=== PATIENT | female | born 1965 | race African-American/Black ===

== ENCOUNTER 2021-10-09 12:21 | Inpatient (IN) | payer OTHER ==
[2021-10-09 12:35] VITALS: BMI 30.4
[2021-10-09 13:16] LABS: BASO % 0.5 % (0-2.0); EOS % 2.1 % (0-4.5); HEMATOCRIT 36.8 % (32.4-45.2); HEMOGLOBIN 12.7 GM/dL (10.7-15.3); LYMPH % 34.1 % (8-40); MCH 27.7 pg (25.7-33.7); MCHC 34.4 g/dl (32.0-36.0); MEAN CELL VOLUME 80.6 fl (80-96); MEAN PLT VOLUME 6.6 fl (7.5-11.1); MONO % 6.5 % (3.8-10.2); NEUT % 56.8 % (42.8-82.8); PLATELET COUNT 483 10^3/uL (134-434); RBC 4.57 M/mm3 (3.60-5.2); RDW 13.5 % (11.6-15.6); WHITE BLOOD COUNT 6.9 K/mm3 (4.0-10.0)
[2021-10-09 13:37] LABS: CALCIUM 9.5 mg/dL (8.5-10.1)
[2021-10-09 13:38] LABS: ALBUMIN 3.8 g/dl (3.4-5.0); BLOOD UREA NITROGEN 10.4 mg/dL (7-18)
[2021-10-09 13:41] LABS: CREATININE 0.5 mg/dL (0.55-1.3)
[2021-10-09 13:43] LABS: BILIRUBIN,TOTAL 0.6 mg/dL (0.2-1); TOT PROT 7.3 g/dl (6.4-8.2)
[2021-10-09] MEDS ORDERED: NITROGLYCERIN SUBLINGUAL 1/200 0.3 MG BTL SL ONE ×2 (13:49→14:05)
[2021-10-09] MEDS ORDERED: LACTATED RINGERS SOLUTION 1000 ML INFUS.BAG IV ONE (13:52)
[2021-10-09] MEDS ORDERED: NITROGLYCERIN SUBLINGUAL 1/150 0.4 MG TAB ONE ×2 (14:03→22:12)
[2021-10-09] MEDS ORDERED: FAMOTIDINE 20 MG/50 ML IVPB 20 MG/50 ML MG IVPB ONE ×2 (14:06→14:16)
[2021-10-09] MEDS ORDERED: MAG HYDROX/AL HYDROX/SIMETH 30 ML UNIT-DOSE CUP PO ONE (14:06)
[2021-10-09] MEDS ORDERED: MAG HYDROX/AL HYDROX/SIMETH 30 ML UNIT-DOSE CUP ONE (14:16)
[2021-10-09 15:20] LABS: INR 1.03 (0.83-1.09); PROTHROMBIN TIME (PATIENT) 11.8 SEC (9.7-13.0)
[2021-10-09 15:23] LABS: ACTIVATED PTT 33.6 SECONDS (25.2-36.5)
[2021-10-09] MEDS: ENOXAPARIN NA (PORCINE) 40 MG/0.4 ML DISP.SYRIN SQ SCH (15:48)
[2021-10-09] MEDS ORDERED: ENOXAPARIN NA (PORCINE) 40 MG/0.4 ML DISP.SYRIN SQ ONE (15:50)
[2021-10-09 15:51] LABS: PH,URINE 7.5 (5.0-8.0); URINE APPEARANCE CLEAR; URINE BILIRUBIN NEGATIVE (NEGATIVE); URINE COLOR YELLOW; URINE GLUCOSE (UA) NEGATIVE (NEGATIVE); URINE KETONE NEGATIVE (NEGATIVE); URINE LEUK ESTERASE NEGATIVE (NEGATIVE); URINE NITRITE NEGATIVE (NEGATIVE); URINE PROTEIN NEGATIVE (NEGATIVE); URINE UROBILINOGEN 0.2 mg/dL (0.2-1.0)
[2021-10-09] MEDS: INSULIN SLIDING SCALE (NOVOLOG) 1 VIAL SQ SCH ×2 (17:37→22:17)
[2021-10-09] MEDS ORDERED: morphine CARPU-JECT 2 MG/1 ML DISP.SYRIN IVPUSH PRN (21:35)
[2021-10-09] MEDS ORDERED: NITROGLYCERIN SUBLINGUAL 1/150 0.4 MG TAB SL ONE (21:38)
[2021-10-10] MEDS ORDERED: IBUPROFEN 400 MG TABLET (FP) PO ONE ×2 (00:18→00:22)
[2021-10-10 07:57] LABS: BASO % 0.7 % (0-2.0); EOS % 3.6 % (0-4.5); HEMOGLOBIN 12.3 GM/dL (10.7-15.3); MCH 28.1 pg (25.7-33.7); MCHC 35.2 g/dl (32.0-36.0); MEAN CELL VOLUME 79.8 fl (80-96); MEAN PLT VOLUME 7.2 fl (7.5-11.1); MONO % 6.9 % (3.8-10.2); NEUT % 38.8 % (42.8-82.8); PLATELET COUNT 436 10^3/uL (134-434); RBC 4.39 M/mm3 (3.60-5.2); RDW 13.4 % (11.6-15.6); WHITE BLOOD COUNT 5.9 K/mm3 (4.0-10.0)
[2021-10-10] MEDS: INSULIN SLIDING SCALE (NOVOLOG) 1 VIAL SQ SCH ×4 (08:00→22:52)
[2021-10-10 08:15] LABS: ACTIVATED PTT 32.5 SECONDS (25.2-36.5)
[2021-10-10 08:18] LABS: INR 1.01 (0.83-1.09); PROTHROMBIN TIME (PATIENT) 11.6 SEC (9.7-13.0)
[2021-10-10 08:19] LABS: BLOOD UREA NITROGEN 9.9 mg/dL (7-18)
[2021-10-10 08:21] LABS: ALBUMIN 3.3 g/dl (3.4-5.0); CALCIUM 8.8 mg/dL (8.5-10.1); MAGNESIUM 2.2 mg/dL (1.8-2.4)
[2021-10-10 08:23] LABS: BILIRUBIN,TOTAL 0.8 mg/dL (0.2-1)
[2021-10-10 08:24] LABS: CREATININE 0.5 mg/dL (0.55-1.3); PHOSPHOROUS 4.1 mg/dL (2.5-4.9); TOT PROT 6.4 g/dl (6.4-8.2)
[2021-10-10] MEDS ORDERED: ENALAPRIL MALEATE 5 MG TABLET ONE (09:52)
[2021-10-10] MEDS ORDERED: ENOXAPARIN NA (PORCINE) 40 MG/0.4 ML DISP.SYRIN SQ ONE (09:52)
[2021-10-10] MEDS ORDERED: FAMOTIDINE 20 MG/50 ML IVPB 20 MG/50 ML MG IVPB ONE (09:52)
[2021-10-10] MEDS ORDERED: ASPIRIN COATED 81 MG TABLET.EC ONE (09:52)
[2021-10-10] MEDS ORDERED: amLODIPine BESYLATE 5 MG TABLET (FP) ONE (09:52)
[2021-10-10] MEDS ORDERED: ENALAPRIL MALEATE 5 MG TABLET PO SCH (10:00)
[2021-10-10] MEDS ORDERED: FAMOTIDINE 20 MG/50 ML IVPB 20 MG/50 ML MG IVPB SCH (10:00)
[2021-10-10] MEDS: ENOXAPARIN NA (PORCINE) 40 MG/0.4 ML DISP.SYRIN SQ SCH (10:05)
[2021-10-10] MEDS: amLODIPine BESYLATE 5 MG TABLET (FP) PO SCH (10:05)
[2021-10-10] MEDS: ASPIRIN COATED 81 MG TABLET.EC PO SCH (10:05)
[2021-10-11] MEDS: INSULIN SLIDING SCALE (NOVOLOG) 1 VIAL SQ SCH ×4 (06:11→22:01)
[2021-10-11] MEDS: amLODIPine BESYLATE 5 MG TABLET (FP) PO SCH ×2 (07:55→13:04)
[2021-10-11] MEDS: ENALAPRIL MALEATE 10 MG TABLET PO SCH ×2 (07:56→13:05)
[2021-10-11 08:35] LABS: BASO % 0.9 % (0-2.0); EOS % 5.1 % (0-4.5); HEMATOCRIT 34.9 % (32.4-45.2); HEMOGLOBIN 12.3 GM/dL (10.7-15.3); LYMPH % 42.1 % (8-40); MCH 28.2 pg (25.7-33.7); MCHC 35.2 g/dl (32.0-36.0); MEAN CELL VOLUME 80.3 fl (80-96); MEAN PLT VOLUME 7.1 fl (7.5-11.1); MONO % 6.6 % (3.8-10.2); NEUT % 45.3 % (42.8-82.8); PLATELET COUNT 452 10^3/uL (134-434); RBC 4.34 M/mm3 (3.60-5.2); RDW 13.4 % (11.6-15.6); WHITE BLOOD COUNT 6.2 K/mm3 (4.0-10.0)
[2021-10-11 08:45] LABS: BLOOD UREA NITROGEN 9.7 mg/dL (7-18); CALCIUM 9.1 mg/dL (8.5-10.1); MAGNESIUM 2.2 mg/dL (1.8-2.4)
[2021-10-11 08:47] LABS: ALBUMIN 3.2 g/dl (3.4-5.0)
[2021-10-11 08:48] LABS: CREATININE 0.7 mg/dL (0.55-1.3)
[2021-10-11 08:50] LABS: BILIRUBIN,TOTAL 0.6 mg/dL (0.2-1); TOT PROT 6.6 g/dl (6.4-8.2)
[2021-10-11] MEDS ORDERED: REGADENOSON 0.4 MG/5 ML PRE-FILLED SYRINGE IVPUSH ONE ×2 (09:19→09:30)
[2021-10-11] MEDS: ASPIRIN COATED 81 MG TABLET.EC PO SCH (13:04)
[2021-10-11] MEDS: FAMOTIDINE 20 MG TABLET PO SCH (13:04)
[2021-10-11] MEDS: ENOXAPARIN NA (PORCINE) 40 MG/0.4 ML DISP.SYRIN SQ SCH (13:07)
[2021-10-12] MEDS: INSULIN SLIDING SCALE (NOVOLOG) 1 VIAL SQ SCH ×4 (06:08→21:32)
[2021-10-12 06:40] LABS: EOS % 4.9 % (0-4.5); HEMATOCRIT 33.8 % (32.4-45.2); MCH 28.4 pg (25.7-33.7); MCHC 35.4 g/dl (32.0-36.0); MEAN CELL VOLUME 80.2 fl (80-96); MEAN PLT VOLUME 7.2 fl (7.5-11.1); NEUT % 45.1 % (42.8-82.8); PLATELET COUNT 446 10^3/uL (134-434); RBC 4.22 M/mm3 (3.60-5.2); RDW 13.6 % (11.6-15.6); WHITE BLOOD COUNT 7.6 K/mm3 (4.0-10.0)
[2021-10-12 07:10] LABS: ALBUMIN 3.3 g/dl (3.4-5.0); BLOOD UREA NITROGEN 12.3 mg/dL (7-18); CALCIUM 9.1 mg/dL (8.5-10.1); MAGNESIUM 2.2 mg/dL (1.8-2.4)
[2021-10-12 07:13] LABS: CREATININE 0.5 mg/dL (0.55-1.3)
[2021-10-12 07:14] LABS: BILIRUBIN,TOTAL 0.4 mg/dL (0.2-1); TOT PROT 6.1 g/dl (6.4-8.2)
[2021-10-12] MEDS: ENALAPRIL MALEATE 10 MG TABLET PO SCH (09:06)
[2021-10-12] MEDS: FAMOTIDINE 20 MG TABLET PO SCH (09:06)
[2021-10-12] MEDS: amLODIPine BESYLATE 5 MG TABLET (FP) PO SCH (09:06)
[2021-10-12] MEDS: ASPIRIN COATED 81 MG TABLET.EC PO SCH (09:07)
[2021-10-12] MEDS: ENOXAPARIN NA (PORCINE) 40 MG/0.4 ML DISP.SYRIN SQ SCH (09:07)
[2021-10-13] MEDS: INSULIN SLIDING SCALE (NOVOLOG) 1 VIAL SQ SCH ×2 (06:28→11:10)
[2021-10-13 07:17] LABS: BASO % 0.7 % (0-2.0); EOS % 5.3 % (0-4.5); HEMATOCRIT 34.5 % (32.4-45.2); HEMOGLOBIN 12.3 GM/dL (10.7-15.3); LYMPH % 44.2 % (8-40); MCH 28.6 pg (25.7-33.7); MCHC 35.8 g/dl (32.0-36.0); NEUT % 43.8 % (42.8-82.8); PLATELET COUNT 455 10^3/uL (134-434); RBC 4.31 M/mm3 (3.60-5.2); RDW 13.1 % (11.6-15.6); WHITE BLOOD COUNT 6.7 K/mm3 (4.0-10.0)
[2021-10-13 07:36] LABS: CALCIUM 8.9 mg/dL (8.5-10.1)
[2021-10-13 07:37] LABS: ALBUMIN 3.2 g/dl (3.4-5.0); BLOOD UREA NITROGEN 12.7 mg/dL (7-18); MAGNESIUM 2.2 mg/dL (1.8-2.4)
[2021-10-13 07:40] LABS: CREATININE 0.5 mg/dL (0.55-1.3)
[2021-10-13 07:42] LABS: BILIRUBIN,TOTAL 0.6 mg/dL (0.2-1); TOT PROT 6.2 g/dl (6.4-8.2)
[2021-10-13 08:30] VITALS: BP 127/86; PULSE 68; TEMP 97.8
[2021-10-13] MEDS: FAMOTIDINE 20 MG TABLET PO SCH (09:25)
[2021-10-13] MEDS: ASPIRIN COATED 81 MG TABLET.EC PO SCH (09:25)
[2021-10-13] MEDS: ENALAPRIL MALEATE 10 MG TABLET PO SCH (09:25)
[2021-10-13] MEDS: ENOXAPARIN NA (PORCINE) 40 MG/0.4 ML DISP.SYRIN SQ SCH (09:26)
[2021-10-13] MEDS: amLODIPine BESYLATE 5 MG TABLET (FP) PO SCH (09:28)
== END 2021-10-13 12:39 | disposition short-term general hospital (02) | DRG 313 ==
LOC: JER 12:21 → UNDOADMOB 14:49 → JERBED 14:49 → INTOOBSV 14:49 → JERBED 15:38 → J4W 10-10 16:57 → OBSVTOIN 10-12 08:38
PROVIDERS: ADMIT Internal Medicine; ATTEND Nurse Practitioner Acute Care
DX: R07.89 Other chest pain (principal); E11.43 Type 2 diabetes mellitus with diabetic autonomic (poly)neuropathy; K21.9 Gastro-esophageal reflux disease without esophagitis; I10 Essential (primary) hypertension; I25.9 Chronic ischemic heart disease, unspecified; K31.84 Gastroparesis
CPT/HCPCS: 0241U-QW; 36415; 71045-TC-FY; 78452-TC; 80053; 80061; 81003; 82962; 83036; 83735; 84100; 84443; 84484; 85025; 85610; 85730; 86850; 86900; 86901; 93005; 93010; 93017; 93306-TC; 99285-25; A9502; G0378; J2785

== ENCOUNTER 2021-10-25 12:51 | Emergency (ER) | payer OTHER ==
[2021-10-25 13:02] VITALS: PULSE 76; TEMP 98.4; BMI 30.1
[2021-10-25 13:46] VITALS: BP 124/76
[2021-10-25 14:38] LABS: EOS % 3.1 % (0-4.5); HEMATOCRIT 37.2 % (32.4-45.2); HEMOGLOBIN 13.2 GM/dL (10.7-15.3); MCH 28.5 pg (25.7-33.7); MCHC 35.4 g/dl (32.0-36.0); MEAN CELL VOLUME 80.4 fl (80-96); MEAN PLT VOLUME 7.1 fl (7.5-11.1); MONO % 7.1 % (3.8-10.2); NEUT % 45.8 % (42.8-82.8); PLATELET COUNT 529 10^3/uL (134-434); RBC 4.63 M/mm3 (3.60-5.2); RDW 13.2 % (11.6-15.6); WHITE BLOOD COUNT 7.7 K/mm3 (4.0-10.0)
[2021-10-25 14:50] LABS: ALBUMIN 3.8 g/dl (3.4-5.0); CALCIUM 9.3 mg/dL (8.5-10.1)
[2021-10-25 14:51] LABS: BLOOD UREA NITROGEN 15.5 mg/dL (7-18)
[2021-10-25 14:53] LABS: CREATININE 0.8 mg/dL (0.55-1.3)
[2021-10-25 14:54] LABS: BILIRUBIN,TOTAL 0.5 mg/dL (0.2-1)
[2021-10-25 14:55] LABS: TOT PROT 6.9 g/dl (6.4-8.2)
[2021-10-25 14:58] LABS: N-TERMINAL BNP 12.3 pg/ml (5-125)
== END 2021-10-25 17:59 | disposition home or self-care (01) ==
LOC: JER 12:51
DX: R07.9 Chest pain, unspecified (principal)
CPT/HCPCS: 0241U-QW; 36415; 71046-TC-FY; 80053; 83880; 84484; 84703; 85025; 93005; 93010; 99285-25